=== PATIENT | female | born 1955 | race Caucasian/White ===

== ENCOUNTER 2025-06-20 10:13 | Day surgery (SDC) | payer MEDICARE, SELFPAY ==
[2025-06-20] VITALS (7 sets, daily range): BP systolic 112–142; BP diastolic 71–78; PULSE 74–98; RESP 12–18; TEMP 36.3–36.7; O2SAT 92–100; BMI 33.3
[2025-06-20] MEDS: Lactated Ringers 1,000 ML 15 ML IV (10:42)
--- NOTE | 2025-06-20 11:03 | PRE.ANES_ITS ---
ASA Classification* ASA Classification ASA Classification: 2 Assessment & Plan Anesthesia* Anesthesia Assessment Anesthesia Assessment: Discussed sedation and/or anesthesia options, risks, benefits, and alternatives with patient/parents/legal guardian/POA. Questions invited. The patient/parents/legal guardian/POA seems to understand and agrees to proceed with anesthesia plan. Reviewed the physical assessment, medical history, allergy history and patient home medications list prior to surgery/procedure/anesthetic and documented any changes. Performed airway and anesthesia risk assessments. Anesthesia Type Anesthesia Type: MAC History Source History Obtained from:: Patient and Chart Anesthesia Focused Assessment* Temperature: 97.4 F Pulse Rate: 74 Blood Pressure: 142/73 Respiratory Rate: 16 Pulse Ox: 100 Oxygen Delivery Method: Room Air Airway Assessment Mouth opens: >3 cm Mallampati Score: III Teeth Condition: Intact Neck Range of motion (ROM): Full ROM Labs Anesthesia Preop lab: CBC CHEMISTRY COAG Pre-Assessment Diagnosis/Proposed Procedure Planned Operative Procedure(s): EGD Anesthesia History Anesthesia History - greenhouse transplanter: Anesthesia History - greenhouse transplanter Hx Hospitalization No 06/18/25 08:25 Any Problems With Anesthesia No 06/18/25 08:25 Cholinesterase deficiency No 06/18/25 08:25 You/Your Family Experience No 06/18/25 08:25 fever (hyperthermia) with Relationship Recent Exposure to Contagious No 06/20/25 10:33 Disease Does patient have nerve No 06/18/25 08:25 stimulator Patient instructed to have device shut off --Does patient have Pacemaker No 06/20/25 10:33 or ICD? When Was Last Pacemaker Check QUESTION #4 FULL TEXT: You/Your Family Experience fever (hyperthermia) with Anesthesia Last Oral Intake Last Oral intake: Last Oral Intake NPO since 00:00 06/20/25 10:33 Meds taken in AM with sips of No 06/20/25 10:33 water? Meds patient instructed to take am of surgery PONV PONV - greenhouse transplanter: PONV - greenhouse transplanter Female Yes 06/18/25 08:25 HX of Motion Sickness No 06/18/25 08:25 HX of N/V After Surgery No 06/18/25 08:25 Non-Smoker Yes 06/18/25 08:25 Duration of Surgery greater Yes 06/18/25 08:25 than 60 minutes Number of Risk Factors 3 06/18/25 08:25 PONV Score Moderate Risk 06/18/25 08:25 Height & Weight Height & Weight: Anesthesia: Height & Weight Height 5 ft 4 in 06/20/25 10:33 Weight: 88 kg 06/20/25 10:33 Body Mass Index (BMI) 33.3 06/20/25 10:33 Respiratory Assessment Respiratory Assessment - greenhouse transplanter: Respiratory Tract Infection Hx - greenhouse transplanter Hx Respiratory Tract Infection No 06/18/25 08:25 STOP Sleep Apnea STOP Sleep Apnea - greenhouse transplanter: STOP Sleep Apnea - greenhouse transplanter Hx Hypertension Yes: ON MEDS 06/18/25 08:25 Hx Sleep Apnea No 06/18/25 08:25 CPAP BIPAP Do you snore loudly (louder No 06/18/25 08:25 than talking or can be heard Do you often feel tired/ No 06/18/25 08:25 fatigued/ sleepy during daytime? Has anyone observed you stop No 06/18/25 08:25 breathing during sleep? STOP Results Negative 06/18/25 08:25 QUESTION #5 FULL TEXT : Do you snore loudly (louder than talking or can be heard through closed doors)? 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 Specify any problems Hx of Preganancy in last 3 No 06/18/25 08:25 Months Nurse Filling Out Transfusion JZOLLINGE 06/18/25 08:25 & Questions: Date: 06/18/25 06/18/25 08:25 Time: 08:27 06/18/25 08:25 Patient unable to answer at this time (ie. confused, unrespo /Reproduction History /Reproductive History - greenhouse transplanter: /Reproductive Hx- greenhouse transplanter Hx Now No 06/18/25 08:25 Gestational Age (in weeks): EDC: Hx Hx Para Hx Section SAB No 06/18/25 08:25 Active Medications Active Medications: Current Medications Generic Name Dose Route Start Last Admin Trade Name Sandi PRN Reason Stop Dose Admin Lactated Ringer's 1,000 mls @ 15 mls/hr 06/20/25 10:30 06/20/25 10:42 IV 15 mls/hr .Q48H RALPH Administration PFSH Medical History Wears glasses Arthritis History of hiatal hernia Gastric reflux Heartburn Non-smoker Home Medications ?Medication ?Instructions ?Recorded ?Last Taken ?Type alendronate 70 mg tablet 70 mg PO QWEEK 03/12/25 Unkn own History atorvastatin 20 mg tablet (Lipitor) 20 mg PO QDAY 02/22 07/19 Unknown History cholecalciferol (vitamin D3) 10 10 mcg PO QDAY 5 Unknown History mcg (400 unit) capsule esomeprazole magnesium 20 mg 20 mg PO BID #60 caps Unknown Rx capsule,delayed release hydrochlorothiazide 12.5 mg tablet 12.5 mg PO QAM 02/2206/19/25 History latanoprost 0.005 % eye drops 1 drp ophthalmic (eye) Q DAY 03/12/25 Unknown History lisinopril 40 mg tablet 40 mg PO QDAY 03/12/2506/19 History kpfwmpmtzpsr-empxbbfj-pfzeka tablet 1 tab PO QDAY 02/22 07/19 Unknown History psyllium husk 3.4 gram/5.4 gram 1 tbsp PO ONCE 5 Unknown History oral powder (Metamucil) timolol maleate 0.5 % eye drops 1 drp ophthalmic (eye) QDAY 03/12/25 Unknown History Allergy/AdvReac Type Severity Reaction Status Date / Time diphenhydramine (From Allergy Intermediate Other Verified 06/20/25 10:32 Benadryl) Surgical History History of hysterectomy H/O tubal ligation Social History Smoking Status: Former smoker alcohol intake: never Review of Systems (Anesthesia) ROS Narrative System reviewed and no additional complaints, except as documented.
--- NOTE | 2025-06-20 11:30 | EGD_PTH ---
PATIENT: BRIANNA BUNN LOC: EN U#:[id number] AGE/SX: 70/F ROOM: RE06/20/[address]: Dr. Yaya Wilson DO : 1955 BED: DIS: 06/20/2025 SPEC #: [id number] RECD: 06/20/25 15:15 STATUS: GOKUL REClarita #: [id number] LIA: 06/20/25 11:[address]: Yaya Wilson DEPT: SURGICAL PATHOLOGY RECD BY: John Andino ENTERED: 06/21/25 10:26 SP TYPE: EGD BIOPSY OT DR: KEISHA Romeo Tissues: A - Esophagus, NOS Procedures: Surgery Specimen Level IV HEADER OPERATION: EGD, biopsy PRE-OP DIAGNOSIS: Hiatal hernia TISSUE SUBMITTED: A- Distal esophagus biopsy MICROSCOPIC DIAGNOSIS A. Distal esophagus, biopsy: - Benign squamous mucosa with ectatic submucosal vessels. - Columnar mucosa negative for goblet cell metaplasia. MICROSCOPIC DESCRIPTION Slides are reviewed. GROSS DESCRIPTION A. Received in fixative is one container labeled with the patient's name and designated Distal esophagus biopsy. The specimen consists of two irregular fragments of light sood soft tissue that measure 0.3 and 0.6 cm. The specimen is totally submitted in one cassette. ND 06/21/2025 CPT:23334
--- NOTE | 2025-06-20 12:04 | HP.PCM_ITS ---
HPI - General General Date of Admission: 06/20/25 Date of Service: 06/20/25 Chief Complaint: hiatal hernia HPI Narrative BRIANNA BUNN, is a 70 F who presents regarding incidental finding of a moderate-sized hiatal hernia on CXR taken 02.07.25, the air-filled portion of the HH measures 8.3 x 5.5 x 10 cm. She presented to PCP with complaints of a frequent cough and gurgling noises coming from her throat when reclined which led to the CXR. She does report frequent throat clearing and sinus drainage she attributes to seasonal allergies. She denies difficulty chewing and swallowing, heartburn, reflux, nausea, emesis, abdominal bloating, excess gas, pain, constipation, diarrhea, hematochezia, and melena. She states that she stopped drinking pop on her own and that the throat gurgling has stopped as well. [facility] Medical History Wears glasses Arthritis History of hiatal hernia Gastric reflux Heartburn Non-smoker Home Medications ?Medication ?Instructions ?Recorded ?Last Taken ?Type alendronate 70 mg tablet 70 mg PO QWEEK 03/12/25 Unkn own History atorvastatin 20 mg tablet (Lipitor) 20 mg PO QDAY 02/22 07/19 Unknown History cholecalciferol (vitamin D3) 10 10 mcg PO QDAY 5 Unknown History mcg (400 unit) capsule esomeprazole magnesium 20 mg 20 mg PO BID #60 caps Unknown Rx capsule,delayed release hydrochlorothiazide 12.5 mg tablet 12.5 mg PO QAM 02/2206/19/25 History latanoprost 0.005 % eye drops 1 drp ophthalmic (eye) Q DAY 03/12/25 Unknown History lisinopril 40 mg tablet 40 mg PO QDAY 03/12/2506/19 History xydohrznorwa-iofxpnfg-tkliwv tablet 1 tab PO QDAY 02/22 07/19 Unknown History psyllium husk 3.4 gram/5.4 gram 1 tbsp PO ONCE 5 Unknown History oral powder (Metamucil) timolol maleate 0.5 % eye drops 1 drp ophthalmic (eye) QDAY 03/12/25 Unknown History Allergy/AdvReac Type Severity Reaction Status Date / Time diphenhydramine (From Allergy Intermediate Other Verified 06/20/25 10:32 Benadryl) Surgical History History of hysterectomy H/O tubal ligation Social History Smoking Status: Former smoker alcohol intake: never ROS Constitutional Constitutional: Denies fatigue, fever(s), poor appetite, weight gain or weight loss Gastrointestinal Gastrointestinal: Denies belching, bloating, change in bowel habits, change in stool character, chewing difficulty, coffee ground emesis, constipation, cramping, diarrhea, dyspepsia, dysphagia, early satiety, excessive flatus, fecal incontinence, heartburn, hematemesis, hematochezia, hemorrhoids, loose stools, melena, nausea, odynophagia, rectal bleeding, tenesmus, vomiting or weight changes Vital Signs Vital Signs Vital Signs: 06/20/25 10:33 06/20/25 10:33 06/20/25 11:03 Temperature 97.4 F L 97.4 F L Temperature Source Temporal Pulse Rate 74 74 Respiratory Rate 16 16 Respiratory Pattern Normal Blood Pressure 142/73 H 142/73 H Blood Pressure Mean 96 Blood Pressure Source Monitor Blood Pressure Position Sitting Blood Pressure Location Right Arm Pulse Ox 100 100 Oxygen Delivery Method Room Air Room Air Weight Weight: 194 lb 0.108 oz Body Mass Index (BMI) 33.3 Physical Exam Const alert, oriented x3, no apparent distress and healthy appearing General Appearance: cooperative GI normal to inspection, nondistended, normoactive bowel sounds, soft to palpation, non-tender and non-distended Percussion: normal to percussion Rectal Exam: deferred Assessment & Plan Assessment/Plan (1) Hiatal hernia: PLAN: Assessment and Plan Assessment and Plan (1) Hiatal hernia: Status: Acute Medications: New esomeprazole magnesium Take 30 minutes before breakfast and dinner. 20 mg PO BID 60 caps 3RF Darshan BRIANNA BUNN, is a 70 F who presents to the office today for establishment with [facility] regarding incidental finding of a moderate-sized hiatal hernia on CXR taken 02.07.25, the air-filled portion of the HH measures 8.3 x 5.5 x 10 cm. She presented to PCP with complaints of a frequent cough and gurgling noises coming from her throat when reclined which led to the CXR. She does report frequent throat clearing and sinus drainage she attributes to seasonal allergies. Reviewed care plan with her. Her last colonoscopy was 9 yrs ago. She has never had an EGD. Discussed silent reflux symptoms and treatment. Discussed that [facility] does not surgically repair HHs, but can manage symptoms. With her history of loss of bone density, choosing lower dosing of PPI. Discussed procedural repair of HH. Reviewed necessary lifestyle changes to prohibit/reduce complications of HH. * esomeprazole 20mg PO twice daily, 30minutes before breakfast and dinner * schedule EGD for evaluation of HH * schedule colonoscopy to reduce exposure to anesthesia, if approved * consider general surgery consult * consume small frequent meals * no carbonated beverages * remain upright after eating x1-2hrs * no eating 3hrs before bed * office FU 1wk after scope(s)
--- NOTE | 2025-06-20 12:35 | PCM.POST.ANE ---
Anesthesia: Postop Eval I Current Vital Signs Temperature: 98 F Pulse Rate: 97 Blood Pressure: 121/73 Respiratory Rate: 16 Pulse Ox: 94 Oxygen Delivery Method: Nasal Cannula Oxygen Flow Rate (L/min): 4 Assessment Airway patent: Yes Spontaneous unlabored respirations: Yes Mental status: Awake and Calm nausea: No Vomiting: No Anesthesia Complication: No Fluid Hydration Crystalloid volume administer (ml): 300 Total IV fluid infused: 300 Progress Note Anesthesia document: Postop Eval 1 completed: Yes
--- NOTE | 2025-06-20 12:38 | OP.EGD_ITS ---
Patient Name: Lay Russell Procedure Date: 06/20/2025 10:25 AM Date of : 1955 Age: 70 Procedure: Upper GI endoscopy Indications: Epigastric abdominal pain, Dyspepsia, Indigestion, Heartburn Providers: Yaya Wilson DO Referring MD: Celio Romeo Medicines: Monitored Anesthesia Care Patient Profile: This is a 70 year old female. Refer to note in patient chart for documentation of history and physical. Patient has symptoms of acute left lower quadrant abdominal pain, acute epigastric abdominal pain, acute dyspepsia, chronic heartburn and chronic nausea. Complications: No immediate complications. Procedure: Pre-Anesthesia Assessment: - Prior to the procedure, a History and Physical was performed, and patient medications and allergies were reviewed. The patient is competent. The risks and benefits of the procedure and the sedation options and risks were discussed with the patient. All questions were answered and informed consent was obtained. Patient identification and proposed procedure were verified by the physician. Mental Status Examination: alert and oriented. Airway Examination: normal oropharyngeal airway and neck mobility. Respiratory Examination: clear to auscultation. CV Examination: normal. Prophylactic Antibiotics: The patient does not require prophylactic antibiotics. Prior Anticoagulants: The patient has taken no anticoagulant or antiplatelet agents. ASA Grade Assessment: II - A patient with mild systemic disease. After reviewing the risks and benefits, the patient was deemed in satisfactory condition to undergo the procedure. The anesthesia plan was to use monitored anesthesia care (MAC). Immediately prior to administration of medications, the patient was re-assessed for adequacy to receive sedatives. The heart rate, respiratory rate, oxygen saturations, blood pressure, adequacy of pulmonary ventilation, and response to care were monitored throughout the procedure. The physical status of the patient was re-assessed after the procedure. After obtaining informed consent, the endoscope was passed under direct vision. Throughout the procedure, the patient's blood pressure, pulse, and oxygen saturations were monitored continuously. The gastroscope was introduced through the mouth, and advanced to the third part of the duodenum. Small bowel enteroscopy was deemed necessary. The upper GI endoscopy was accomplished without difficulty. The patient tolerated the procedure well. Scope In: 12:23:03 PM Scope Out: 12:27:24 PM Total Procedure Duration Time 0 hours 4 minutes 21 seconds Findings: Grade II varices were found in the middle third of the esophagus. They were 8 mm in largest diameter. The Z-line was irregular and was found 36 cm from the incisors. Biopsies were taken with a cold forceps for histology. Verification of patient identification for the specimen was done. Estimated blood loss was minimal. A large hiatal hernia was present. No other significant abnormalities were identified in a careful examination of the stomach. No gross lesions were noted in the entire examined duodenum. Impression: - Grade II esophageal varices. - Z-line irregular, 36 cm from the incisors. Biopsied. - Large hiatal hernia. - No gross lesions in the entire examined duodenum. Recommendation: - Discharge patient to home. - Resume previous diet. - Continue present medications. - Await pathology results. Procedure Code(s): --- Professional --- 66444, Small intestinal endoscopy, enteroscopy beyond second portion of duodenum, not including ileum; with biopsy, single or multiple CPT copyright 2021 [employer]. All rights reserved. The codes documented in this report are preliminary and upon land leasing information clerk review may be revised to meet current compliance requirements. Yaya Wilson DO 06/20/2025 12:38:32 PM This report has been signed electronically. Number of Addenda: 0 Note Initiated On: 06/20/2025 10:25 AM
--- NOTE | 2025-06-20 12:39 | OP.PROVAT_ITS ---
06/20/2025 Celio Romeo Re : Upper GI endoscopy procedure for Lay Moellerr Oscar This procedure was performed on Friday, June 20, 2025. My impressions and recommendations are as follows: Impressions : - Grade II esophageal varices. - Z-line irregular, 36 cm from the incisors. Biopsied. - Large hiatal hernia. - No gross lesions in the entire examined duodenum. Recommendations : - Discharge patient to home. - Resume previous diet. - Continue present medications. - Await pathology results. My findings are described in the full procedure note, which is enclosed. If I can be of further assistance, please feel free to contact me at . Sincerely, Yaya Wilson, 06/20/2025 12:38:32 PM This report has been signed electronically.
--- NOTE | 2025-06-20 13:02 | PCM.POSTANE2 ---
Anesthesia Postop Eval I Sum Postop Eval Completion status Anesthesia document: Postop Eval 1 completed: Yes Anesthesia Postop Eval I Summary Anesthesia Postop Eval I Summary: Anesthesia Postop Eval I: Assessment Summary Airway patent Yes 06/20/25 12:36 [email or web address] Spontaneous unlabored Yes 06/20/25 12:36 [email or web address] respirations Mental status Awake,Calm 06/20/25 12:36 [email or web address] nausea No 06/20/25 12:36 [email or web address] Vomiting No 06/20/25 12:36 [email or web address] Anesthesia Postop Eval I: Fluid Summary Crystalloid volume administer 300 06/20/25 12:36 [email or web address] (ml) Colloids volume administered ( ml) Blood Product volume administered (ml) Total IV fluid infused 300 06/20/25 12:36 [email or web address] Anesthesia Postop Eval I: Summary Notes Anesthesia Complication No 06/20/25 12:36 [email or web address] Anesthesia Complication Comment: Post-operative progress note Anesthesia: Postop Eval II Evaluation Mental status: Awake Pain Level: 0 nausea: No Vomiting: No Complications Anesthesia Complication: No
== END 2025-06-20 13:24 | disposition home or self-care (01) ==
LOC: EN 10:14 → AC 10:20
PROVIDERS: Visit Provider Internal Medicine Gastroenterology
PROC: 0DJ08ZZ Inspection of Upper Intestinal Tract, Via Natural or Artificial Opening Endoscopic (ICD-10-PCS; CPT 43235; principal; 2025-06-20 11:25)
DX: I85.00 Esophageal varices without bleeding (principal); K44.9 Diaphragmatic hernia without obstruction or gangrene; K21.9 Gastro-esophageal reflux disease without esophagitis; K30 Functional dyspepsia; I10 Essential (primary) hypertension; Z79.899 Other long term (current) drug therapy; Z87.891 Personal history of nicotine dependence
CPT/HCPCS: 43239; 88305; J2405